=== PATIENT | female | born 1955 | race Caucasian/White ===

== ENCOUNTER 2020-09-12 08:33 | Emergency (ER) | payer OTHER ==
[~2020-09-12] VITALS: Ht 175.3 cm; Wt 79.4 kg
[2020-09-12] MEDS ORDERED: METOPROLOL SUCC25 MG PO (14:44)
[2020-09-12] MEDS ORDERED: LEVOTHYROXINE100 MC2 PO (14:45)
[2020-09-12] MEDS ORDERED: PROZAC40 MG PO (14:45)
--- NOTE | 2020-09-13 06:45 | CONS ---
[facility] [address], [place] [address] Signed DATE OF CONSULTATION: 09/12/2020 CHIEF COMPLAINT: Trauma. HISTORY OF PRESENT ILLNESS: Nirav is a 64-year-old female, who apparently was riding her lawnmower this morning and rolled down a 6 foot embankment. It sounds like the lawnmower rolled over her pelvic area. She did not lose consciousness. She was not able to stand at the scene. Her had to help bring and called the ambulance. She was brought to our local emergency room for evaluation. Her vital signs were stable and her fast exam was unremarkable. I was in the operating room when she first came. In the meantime, she was sent over to the CT scanner and had come back as I was coming into the emergency room. She has remained hemodynamically stable and the CT scans have been completed. She tells me her only real pain is her low back and pelvic area. PAST MEDICAL HISTORY: Hypertension, hypothyroidism, and irritable bowel syndrome. PAST SURGICAL HISTORY: Includes a hysterectomy and colonoscopy. SOCIAL HISTORY: She is to [facility] at [phone]. Thony Sen is her primary care provider. FAMILY HISTORY: None. REVIEW OF SYSTEMS: We reviewed 10 systems and no new issues were noted. ALLERGIES: None. MEDICATIONS: Not known at this time. PHYSICAL EXAMINATION: VITAL SIGNS: Her blood pressure is 118/82, heart rate 71, respiratory rate 16, temperature is 97.7. She is 94% on 2 L nasal cannula. She is 5 feet 9 inches tall at 79 kg. GCS was 15. GENERAL: Nirav is a 64-year-old female appears healthy and at her stated age. Her C-collar is in place. She recognized me from when I helped her with her colonoscopy. Electronically Signed By: JAMES KABA MD 09/13/20 0645 PATIENT NAME: NIRAV GARCIA CONSULTATION DATE OF : 59 REPORT #: [id number] PHYSICIAN: JAMES KABA MD PCP: THONY SEN PA-C REPORT IS CONFIDENTIAL AND NOT TO BE RELEASED WITHOUT AUTHORIZATION [facility] [address], [place] [address] Signed She has no complaints in her neck. LUNGS: Clear to auscultation bilaterally. HEART: Regular rate and rhythm without murmurs. ABDOMEN: Soft, flat and nontender. NEUROLOGIC: She has excellent strength in both her hands along with full sensation in both hands. She has excellent strength in the extension and dorsiflexion of her feet and can feel palpation in both her feet and along her legs up to her knees. She has some mild abrasions on her knees. LABORATORY DATA: Her white blood cell count is 10, hemoglobin 14, neutrophils 70. Urinalysis showed small blood. RADIOGRAPHIC STUDIES: Chest x-ray was unremarkable. Pelvic x-ray was unremarkable. CT of the head was unremarkable with respect to trauma. CT of her cervical spine was unremarkable. CT of the abdomen, pelvis and lumbar spine showed the left gluteal ecchymoses, right sacral ala comminuted fracture, slightly widened left SI joint, pubic symphysis fracture, right piriform muscle hematoma, left 12th rib fracture and the transverse process fractures on the left of L1 and L2. ASSESSMENT AND PLAN: Nirav is a 64-year-old female, who presents after rolling down a 6 foot embankment with a riding lawnmower. It appears all injuries are orthopedic. In the meantime, I had gone back to the operating room and I have checked back to review her status. She is awaiting transfer to a larger center. I reviewed all this with Nirav and Dr. Castro. At this point, there is no further general surgical input. James Kaba MD ALB/MODL /[id number] cc: Dr. Thony Sen Copies: Electronically Signed By: JAMES KABA MD 09/13/20 0645 PATIENT NAME: NIRAV GARCIA CONSULTATION DATE OF : 59 REPORT #: [id number] PHYSICIAN: JAMES KABA MD PCP: THONY SEN PA-C REPORT IS CONFIDENTIAL AND NOT TO BE RELEASED WITHOUT AUTHORIZATION [address] [address] Signed ~ Electronically Signed By: JAMES KABA MD 09/13/20 0645 PATIENT NAME: GARCIANIRAVBISI ESCALANTE CONSULTATION DATE OF : 59 REPORT #: [id number] PHYSICIAN: JAMES KABA MD PCP: THONY SEN PA-C REPORT IS CONFIDENTIAL AND NOT TO BE RELEASED WITHOUT AUTHORIZATION
== END 2020-09-12 13:55 | disposition short-term general hospital (02) ==
LOC: ED 08:33
DX: S32.019A Unspecified fracture of first lumbar vertebra, initial encounter for closed fracture (principal); S32.029A Unspecified fracture of second lumbar vertebra, initial encounter for closed fracture; S22.32XA Fracture of one rib, left side, initial encounter for closed fracture; X58.XXXA Exposure to other specified factors, initial encounter; Z79.899 Other long term (current) drug therapy; Z20.822 Contact with and (suspected) exposure to COVID-19
CPT/HCPCS: 51702; 70450; 71045; 72125; 72131; 72170; 74177; 80053; 81001; 82150; 82553; 83605; 83690; 85025; 99285-25; C9803; G0480; J1170; J2405; J7030; Q9967; U0003

== ENCOUNTER 2022-08-10 07:32 | Day surgery (SDC) | payer OTHER ==
[~2022-08-10] VITALS: Ht 175.3 cm; Wt 81.9 kg
[~2022-08-10 07:32] MED LIST: ALL DAY ALLERGY10 M3 PO; AZITHROMYCIN250 MG PO; COQ-10100 MG PO; FLONASE ALLERG9.9 ML NAS; GEMFIBROZIL600 MG PO; LEVOTHYROXINE100 MC2 PO; METOPROLOL SUCC25 MG PO; PRILOSEC OTC20 MG PO; PROZAC40 MG PO
[2022-08-10 07:47] VITALS: BP 147/75
--- NOTE | 2022-08-10 10:43 | NUR ---
08/10/22 1043 Rosalina Dominguez 1011 PT ARRIVED IN PACU NON RESPONSIVE TO NOXIOUS STIMULI. 1020 PT REACTIVE. 1030 STAT LABS DRAWN. 1040 AWAKENS TO VERBAL STIMULI, THEN FALLS BACK TO SLEEP.
[2022-08-10 10:50] VITALS: BP 133/77
--- NOTE | 2022-08-10 10:51 | NUR ---
PT ALERT, ORIENTED AND DROPPED OFF BY LELO-HE WILL RETURN FOR DC. PT PLEASANT, REQUESTED [facility]. GAVE BLESSING AND ENCOURAGEMENT. WILL FOLLOW
--- NOTE | 2022-08-11 07:27 | OR ---
[facility] [address] [place], [place] [address] Signed DATE OF OPERATION: 08/10/2022 SURGEON: James Kaba MD PREOPERATIVE DIAGNOSES: 1. Gastroesophageal reflux disease. 2. Vomiting. 3. Screening. POSTOPERATIVE DIAGNOSES: 1. Mild diffuse gastritis. 2. Tiny hiatal hernia. 3. Minimal esophageal varices. 4. Gastroesophageal junction at 38 cm. 5. Tortuous sigmoid colon. 6. Minimal to moderate internal and external hemorrhoids. PROCEDURES: 1. Esophagogastroduodenoscopy with CLOtest and biopsy of the antrum and gastroesophageal junction. 2. Colonoscopy without biopsy. ESTIMATED BLOOD LOSS: None. 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 Her daughter developed blood clots and was found to have Factor V Leiden deficiency. I believe her son and her maternal cousin also have Factor V Leiden deficiency. Nirav really has never had any trouble with clotting. She has had children and even pelvic fractures. 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 She wanted to go and see our local sound ranging crewmember, Dr. Farrukh Montejo for evaluation. That consult has been sent. In the meantime, she told me she has had acid reflux and trouble vomiting when she bends over. She has been on omeprazole, which seems to help. I helped her with an unremarkable colonoscopy in 2009 at the age of 53. She has no family history of colon cancer or polyps. In the office, I gave her pamphlets on both upper and lower endoscopy. We reviewed the nature of the two tests. There is risk including, but not limited to gas bloating, crampy abdominal pain, bleeding, perforation requiring surgery, and missed diagnosis. We also Electronically Signed By: JAMES KABA MD 08/11/22 0727 PATIENT NAME: NIRAV GARCIA OPERATIVE REPORT DATE OF : 59 REPORT #: [id number] PHYSICIAN: JAMES KABA MD PCP: THONY MARTINEZ PA-C REPORT IS CONFIDENTIAL AND NOT TO BE RELEASED WITHOUT AUTHORIZATION [facility] [address] [place] [id number] Signed reviewed the need for IV conscious sedation. She had expressed understanding and wished to proceed. PROCEDURE IN DETAIL: Nirav was taken into our endoscopy suite and placed in the supine semi-recumbent position. She was given a total of 8 mg of Versed and 200 mcg of fentanyl during the procedure. We had to convert to monitored anesthesia care with propofol because of her tortuous sigmoid colon. After that, she did much better. The posterior oropharynx was anesthetized with Hurricaine spray. A bite block was utilized for the case. The adult gastroscope was introduced and advanced out the third portion of the duodenum without difficulty. The duodenum and pyloric channel were unremarkable. Her stomach showed very mild inflammatory changes. Upon retroflexion of scope she probably has just a very tiny hiatal hernia or maybe just the short lower esophageal sphincter. We withdrew the scope up through the area of GE junction, which was compliant without stricture. We have taken biopsies of the antrum for pathologic review as well as CLOtest. We did not see any gastric or esophageal varices in the GE junction. Very minimal disruption to the Z-line. We went ahead and took a biopsy along the edge of the Z-line for pathologic review. As we withdrew the scope, we saw standard three columns of veins in her distal esophagus. They were small, but clearly there. I extended up to about her mid esophagus. We were able to insufflate and deflate and we were quite confident in that. We took pictures for photodocumentation. We reviewed her chart and really cannot ascertain why she has what appears to be mild esophageal varices. There is no inflammatory changes in the distal esophagus, middle esophagus, or upper esophagus. There was no Ruiz's mucosa. After this, the gas was suctioned out, the gastroscope removed. Nirav tolerated the upper endoscopy quite well. Nirav was rotated into the left lateral decubitus position. She was maintained on IV Versed and fentanyl. A digital rectal exam was performed and this was unremarkable other than some minimal external hemorrhoids. She had good sphincter tone. There were no masses. The adult colonoscope was introduced and advanced under direct visualization of camera. Her sigmoid colon is a bit tortuous and narrow and that gave us quite a bit of difficulty. She was pushing back and moaning and raising her head. We asked our anesthesia provider to come and help us with monitored anesthesia care infusion of propofol. That worked out very nicely, she relaxed and I was able to advance the scope. Even then, I could feel the scope dragging in her sigmoid colon. We made it around into the cecum with a little abdominal compression. Her prep was quite excellent. We could easily see the appendiceal orifice and the ileocecal valve. The scope was then slowly withdrawn. We took pictures throughout for photodocumentation. We saw no diverticula and no polyps. We did note the sigmoid colon was a bit tortuous even on the way out. Once in the rectum, the scope was retroflexed and she has minimal to moderate internal hemorrhoid columns as well. After this, the gas was suctioned out. The colonoscope removed. Overall, Nirav tolerated the procedure well. Electronically Signed By: JAMES KABA MD 08/11/22 0727 PATIENT NAME: NIRAV GARCIA OPERATIVE REPORT DATE OF : 59 REPORT #: [id number] PHYSICIAN: JAMES KABA MD PCP: THONY MARTINEZ PA-C REPORT IS CONFIDENTIAL AND NOT TO BE RELEASED WITHOUT AUTHORIZATION [facility] [address], [place] [address] Signed RECOMMENDATIONS: I will see Nirav back in my office in 7 to 14 days to review her results. We are going to draw a CBC, CMP, and INR in our recovery room. Also in the future she would be well served with monitored anesthesia care propofol infusion for colonoscopies. She may or may not need an ultrasound as an outpatient of her liver. James Kaba MD ALB/MODL /[id number] cc: MD Thony Best Copies: JAMES KABA MD ~ Electronically Signed By: AJMES KABA MD 08/11/22 0727 PATIENT NAME: NIRAV GARCIA OPERATIVE REPORT DATE OF : 59 REPORT #: [id number] PHYSICIAN: JAMES KABA MD PCP: THONY MARTINEZ PA-C REPORT IS CONFIDENTIAL AND NOT TO BE RELEASED WITHOUT AUTHORIZATION
--- NOTE | 2022-08-12 17:27 | PATH ---
[facility] [address] [place], [place] [address] Signed SPECIMEN(S): A ANTRUM BIOPSY SPECIMEN(S): B GE JUNCTION BIOPSY SPECIMEN SOURCE: A. ANTRUM BIOPSY B. GE JUNCTION BIOPSY CLINICAL HISTORY: GERD. Colon screening. Possible esophageal varices. External/internal hemorrhoids, tortuous colon. FINAL PATHOLOGIC DIAGNOSIS: A. Stomach, antrum, biopsy: - Antral-type mucosa with mild superficial chronic inflammation and focal superficial vascular congestion. - No acute or active inflammation identified. - Negative for H. pylori organisms by immunohistochemistry. - Negative for dysplasia and malignancy. B. Gastroesophageal junction, biopsy: - Acid secreting gastric mucosa with mild superficial chronic inflammation. - No stratified squamous esophageal mucosa identified. - No acute or active inflammation identified. - No H. pylori-like organism identified on routine histologic sections. - Negative for intestinal metaplasia, dysplasia, and malignancy. SDL:mfr:C2NR MICROSCOPIC EXAMINATION: Histologic sections of all submitted blocks are examined by light microscopy. These findings, together with the gross examination, support the pathologic diagnosis. GROSS DESCRIPTION: A. The specimen, labeled and designated "Garcia, antrum biopsy," is received in formalin and consists of one villa soft tissue fragment, 0.2 cm. Entirely submitted in (A1). B. The specimen, labeled and designated "Garcia, GE junction biopsy," is received in formalin and consists of one villa soft tissue fragment, 0.2 cm. Entirely submitted in (B1). JS (under the direct supervision of a pathologist) The Gross Description was prepared using a voice recognition system. The report was reviewed for accuracy; however, sound-alike word errors, addition and/or PATIENT NAME: NIRAV GARCIA PATHOLOGY DATE OF : 59 REPORT #: [id number] PHYSICIAN: DAYTON ROSA PCP: THONY MARTINEZ PA-C REPORT IS CONFIDENTIAL AND NOT TO BE RELEASED WITHOUT AUTHORIZATION [facility] [address] [place], [place] [address] Signed deletions may occur. If there are any questions about this report, please contact Client Services. ADDITIONAL NOTES: Immunohistochemical and/or in situ hybridization studies were performed on this case with the appropriate positive controls that react as expected. This test was developed and its performance characteristics determined by [employer]. It has not been cleared or approved by the U.S. Food and Drug Administration. The FDA has determined that such clearance or approval is not necessary. This test is used for clinical purposes. It should not be regarded as investigational or for research. [facility] is certified under the Clinical Laboratory Improvement Amendments of 1988 (CLIA) as qualified to perform high complexity clinical laboratory testing. This assay has not been validated for specimens that have been decalcified. PERFORMING LABORATORY: The technical component was performed by [facility], [address] [place] [id number] (CLIA# [id number]) Professional interpretation was performed by [facility], [address] [place] [id number] (CLIA#: [id number]). . Diagnostician: Inez Wilson MD Pathologist Electronically Signed 08/12/2022 Copies: ~ PATIENT NAME: NIRAV GARCIA PATHOLOGY DATE OF : 59 REPORT #: [id number] PHYSICIAN: [facility] PCP: THONY MARTINEZ PA-C REPORT IS CONFIDENTIAL AND NOT TO BE RELEASED WITHOUT AUTHORIZATION
== END 2022-08-10 11:06 | disposition home or self-care (01) ==
LOC: DS 07:32 → OPS 07:32 → DS 09:45 → OPS 09:45 → DS 08-12 09:30
PROVIDERS: ATTEND Colon & Rectal Surgery
PROC: 0DJD8ZZ Inspection of Lower Intestinal Tract, Via Natural or Artificial Opening Endoscopic (ICD-10-PCS; principal; 2022-08-10 09:45)
PROC: 0DB68ZX Excision of Stomach, Via Natural or Artificial Opening Endoscopic, Diagnostic (ICD-10-PCS; 2022-08-10 09:45)
DX: Z12.11 Encounter for screening for malignant neoplasm of colon (principal); K29.50 Unspecified chronic gastritis without bleeding; K44.9 Diaphragmatic hernia without obstruction or gangrene; I85.00 Esophageal varices without bleeding; K63.89 Other specified diseases of intestine; K64.8 Other hemorrhoids; K64.4 Residual hemorrhoidal skin tags; I10 Essential (primary) hypertension; K21.9 Gastro-esophageal reflux disease without esophagitis; D68.51 Activated protein C resistance; E03.9 Hypothyroidism, unspecified; E78.5 Hyperlipidemia, unspecified
CPT/HCPCS: 43239; G0121; 00731; 36415; 80053; 85025; 85610; 87077; 99153; G0500; J2250; J2704; J3010; J7121